=== PATIENT | female | born 1955 | race Caucasian/White ===

== ENCOUNTER → 2019-02-07 | Outpatient (CLI) | payer BC ==
[2019-02-07 08:56] LABS: CARBON DIOXIDE 27 MMOL/L (21-32); CHLORIDE 98 MMOL/L (98-107); POTASSIUM 4.7 MMOL/L (3.6-5.0); SODIUM 136 MMOL/L (135-145)
[2019-02-07 08:57] LABS: ALANINE AMINOTRANSFERASE 13 U/L (0-55); ALBUMIN 4.1 GM/DL (3.2-4.5); ALKALINE PHOSPHATASE 69 U/L (40-136); BILIRUBIN,TOTAL 0.3 MG/DL (0.1-1.0); BUN/CREATININE RATIO 28; CALCIUM 8.9 MG/DL (8.5-10.1); CREATININE SERUM 0.75 MG/DL (0.60-1.30); GFR ESTIMATED > 60; GLUCOSE 156 MG/DL (70-105); TOTAL PROTEIN 6.7 GM/DL (6.4-8.2)
[2019-02-07 11:15] LABS: CHOLESTEROL 166 MG/DL (< 200); HDL CHOLESTEROL 51 MG/DL (40-60); TRIGLYCERIDES 47 MG/DL (<150); VLDL CHOLESTEROL 9 MG/DL (5-40)
== END ==
LOC: LAB FS 08:07
PROVIDERS: ATTEND Pediatrics
DX: I10 Essential (primary) hypertension (principal); E11.00 Type 2 diabetes mellitus with hyperosmolarity without nonketotic hyperglycemic-hyperosmolar coma (NKHHC)
CPT/HCPCS: 36415; 80053; 80061; 83036

== ENCOUNTER → 2019-08-08 | Outpatient (CLI) | payer BC ==
[2019-08-08 09:28] LABS: BILIRUBIN,TOTAL 0.4 MG/DL (0.1-1.0); BUN/CREATININE RATIO 21; CALCIUM 9.8 MG/DL (8.5-10.1); CARBON DIOXIDE 28 MMOL/L (21-32); CHLORIDE 97 MMOL/L (98-107); CREATININE SERUM 0.67 MG/DL (0.60-1.30); GFR ESTIMATED > 60; GLUCOSE 184 MG/DL (70-105); POTASSIUM 4.4 MMOL/L (3.6-5.0); SODIUM 136 MMOL/L (135-145)
[2019-08-08 09:29] LABS: ALANINE AMINOTRANSFERASE 14 U/L (0-55); ALBUMIN 4.2 GM/DL (3.2-4.5); ALKALINE PHOSPHATASE 82 U/L (40-136); TOTAL PROTEIN 7.4 GM/DL (6.4-8.2)
== END ==
LOC: LAB FS 08:36
PROVIDERS: ATTEND Pediatrics
DX: E11.00 Type 2 diabetes mellitus with hyperosmolarity without nonketotic hyperglycemic-hyperosmolar coma (NKHHC) (principal)
CPT/HCPCS: 36415; 80053; 83036

== ENCOUNTER 2020-01-29 22:32 | Emergency (ER) | payer BC ==
[~2020-01-29] VITALS: Ht 157 cm; Wt 106.0 kg
--- OUTSIDE RECORDS SUMMARY | 2020-01-29 22:39 | XMS REPORT | Continuity of Care Document ---
Author Organization Unknown Address Unknown Phone Unavailable Allergies There is no data. Medications There is no data. 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 Results Test Result Range Comprehensive metabolic panel - 02/07/19 08:18 Serum or plasma sodium measurement (moles/volume) 136 mmol/L 135-145 Serum or plasma potassium measurement (moles/volume) 4.7 mmol/L 3.6-5.0 Serum or plasma chloride measurement (moles/volume) 98 mmol/L 98-107 Carbon dioxide 27 mmol/L 21-32 Serum or plasma anion gap determination (moles/volume) 11 mmol/L 5-14 Serum or plasma urea nitrogen measurement (mass/volume ) 21 mg/dL 7-18 Serum or plasma creatinine measurement (mass/volume) 0.75 mg/dL 0.60-1.30 Serum or plasma urea nitrogen/creatinine mass ratio 28 NRG Serum or plasma creatinine measurement w ith calculation of estimated glomerular filtration rate > NRG Serum or plasma glucose measurement (mass/volume) 156 mg/dL 70-105 Serum or plasma calcium measurement (mass/volume) 8.9 mg/dL 8.5-10.1 Serum or plasma total bilirubin measurement (mass/volu me) 0.3 mg/dL 0.1-1.0 Serum or plasma alkaline phosphatase ena surement (enzymatic activity/volume) 69 U/L 40-136 Serum or plasma aspartate aminotransfera se measurement (enzymatic activity/volume) 14 U/L 5-34 Serum or plasma alanine aminotransferase measurement (enzymatic activity/volume) 13 U/L 0-55 Serum or plasma protein measurement (mass/volume) 6.7 g/dL 6.4-8.2 Serum or plasma albumin measurement (mass/volume) 4.1 g/dL 3.2-4.5 CALCIUM CORRECTED 8.8 mg/dL 8.5-10.1 Lipid 1996 panel - 02/07/19 08:18 Serum or plasma triglyceride measurement (mass/volume) 47 mg/dL <150 Serum or plasma cholesterol measurement (mass/volume) 166 mg/dL < 200 Serum or plasma cholesterol in HDL measurement (mass/v olume) 51 mg/dL 40-60 Cholesterol in LDL [mass/volume] in serum or plasma by direct assay 110 mg/dL 1-129 Serum or plasma cholesterol in VLDL measurement (mass/ volume) 9 mg/dL 5-40 Hemoglobin A1c - 02/07/19 08:18 Blood hemoglobin A1C measurement (mass/volume) 6.6 % 4.0-5.6 MEAN BLOOD GLUCOSE 143 % <=126 Comprehensive metabolic panel - 08/08/19 08:55 Serum or plasma sodium measurement (moles/volume) 136 mmol/L 135-145 Serum or plasma potassium measurement (moles/volume) 4.4 mmol/L 3.6-5.0 Serum or plasma chloride measurement (moles/volume) 97 mmol/L 98-107 Carbon dioxide 28 mmol/L 21-32 Serum or plasma anion gap determination (moles/volume) 11 mmol/L 5-14 Serum or plasma urea nitrogen measurement (mass/volume ) 14 mg/dL 7-18 Serum or plasma creatinine measurement (mass/volume) 0.67 mg/dL 0.60-1.30 Serum or plasma urea nitrogen/creatinine mass ratio 21 NRG Serum or plasma creatinine measurement w ith calculation of estimated glomerular filtration rate > NRG Serum or plasma glucose measurement (mass/volume) 184 mg/dL 70-105 Serum or plasma calcium measurement (mass/volume) 9.8 mg/dL 8.5-10.1 Serum or plasma total bilirubin measurement (mass/volu me) 0.4 mg/dL 0.1-1.0 Serum or plasma alkaline phosphatase ena surement (enzymatic activity/volume) 82 U/L 40-136 Serum or plasma aspartate aminotransfera se measurement (enzymatic activity/volume) 14 U/L 5-34 Serum or plasma alanine aminotransferase measurement (enzymatic activity/volume) 14 U/L 0-55 Serum or plasma protein measurement (mass/volume) 7.4 g/dL 6.4-8.2 Serum or plasma albumin measurement (mass/volume) 4.2 g/dL 3.2-4.5 CALCIUM CORRECTED 9.6 mg/dL 8.5-10.1 Hemoglobin A1c measurement - 08/08/19 08 :55 Blood hemoglobin A1C measurement (mass/volume) 6.8 % 4.0-5.6 MEAN BLOOD GLUCOSE 148 % <=126 Encounters ACCT No. Visit Date/Time Discharge Status Pt. Type Provider Facility Loc./Unit Complaint [id number] 08/08/2019 08:36:00 019 23:59:59 CLS Outpatient DANDRE GRAF, D[facility]IS [facility] FS E11.00 [id number] 02/07/2019 08:07:00 019 23:59:59 CLS Outpatient DORIS AMOS MD [facility] FS I10 E11.00
--- NOTE | 2020-01-29 22:51 | ED Integumentary General ---
General Chief Complaint: Skin/Wound Problems Stated Complaint: RIGHT LEG BLEED History of Present Illness Date Seen by Provider: January 29, 2020 Time Seen by Provider: 22:48 Initial Comments Small dark spot on the inside of her ankle felt to be a tape picked at it turned out to be a varicose vein and bled substantially and to stop none but concerned that it may break open again she is on her feet all night at work. Timing/Duration: just prior to arrival Severity: mild Location: extremities Associated Symptoms: No fever, No numbness, No tingling Allergies and Home Medications Allergies Coded Allergies: cefaclor (Verified Allergy, Unknown, 01/29/20) Patient Home Medication List Home Medication List Reviewed: Yes Review of Systems Review of Systems Constitutional: no symptoms reported; No chills, No fever Musculoskeletal: No joint pain, No joint swelling, No muscle weakness Skin: lesions; No rash Past Djrivog-Vvovki-Jupfsm Hx Past Med/Social Hx: Reviewed Nursing Past Med/Soc Hx Patient Social History Recent Foreign Travel: No Contact w/Someone Who Travel: No Physical Exam Vital Signs Capillary Refill : General Appearance: WD/WN, no apparent distress Extremities: normal range of motion, non-tender, other (Court a few varicosities in the lower extremity 1 with an area that looks like it was recently excoriated not bleeding at this time) Neurologic/Psychiatric: no motor/sensory deficits, alert, normal mood/affect, oriented x 3 Skin: normal color, warm/dry Departure Impression Primary Impression: Varicose vein of leg Disposition: 01 HOME, SELF-CARE Condition: Stable Departure-Patient Inst. Referrals: DORIS AMOS MD (PCP/Family) Primary Care Physician Patient Instructions: Varicose Veins (DC) KATHY WILKINSON JR, MD January 29, 2020 22:51
[2020-01-29 22:55] VITALS: BP 173/98
== END 2020-01-29 22:57 | disposition home or self-care (01) ==
LOC: EDUNIT# 22:32 → ER FS 22:34
DX: I83.891 Varicose veins of right lower extremity with other complications (principal); Z88.1 Allergy status to other antibiotic agents
CPT/HCPCS: 99282

== ENCOUNTER 2023-07-10 20:59 | Emergency (ER) | payer BC, MEDICARE ==
[~2023-07-10] VITALS: Ht 152 cm; Wt 109.0 kg
--- NOTE | 2023-07-10 21:53 | ED Integumentary General ---
General Chief Complaint: Skin/Wound Problems Stated Complaint: VEIN IN LOWER LEG BLEEDING Nursing Triage Note: Patient to ER via wc with son c/o vein pulsating blood out back of lower leg. "This vein has come open in the past and usually applying pressure over some time will stop the bleed. This has been shooting out since 4:30 this susan and I can't get it to stop." Tourniquet in place on arrival. Source: patient History of Present Illness Date Seen by Provider: Jul 10, 2023 Time Seen by Provider: 21:15 Initial Comments 67-year-old female presenting with complaints of bleeding from varicose vein on the right lower leg. She states she has had this happen 3-4 times over the last several years. This event started around 430 this evening and she has not been able to get it to completely stop. With holding pressure it had slowed down e arlier but when they went to change the dressing it started bleeding again. She does not know what initially started the bleeding but just felt like she was getting wetness in her shoe at 430 while they were in the vehicle. She does not take a blood thinner other than a baby aspirin. She denies having any pain in the area. She has not seen a surgeon about the varicose veins previously. Timing/Duration: this afternoon Severity: moderate Location: extremities (Right medial ankle) Possible Cause: no cause identified Associated Symptoms: No blisters, No change in skin texture, No fever, No flushing, No headache, No hives, No jaundice, No malaise, No nasal congestion, No numbness, No pallor, No paresthesia, No petechiae, No rash, No sore throat, No swelling/mass/lumps, No tingling Allergies and Home Medications Allergies Coded Allergies: cefaclor (Verified Allergy, Unknown, 01/29/20) Patient Home Medication List Home Medication List Reviewed: Yes Review of Systems Review of Systems Constitutional: No chills, No dizziness, No fever EENTM: no symptoms reported Respiratory: no symptoms reported Cardiovascular: no symptoms reported Gastrointestinal: no symptoms reported Genitourinary: no symptoms reported Musculoskeletal: no symptoms reported Skin: see HPI Psychiatric/Neurological: No Symptoms Reported Past Sldswjd-Exdoqb-Pzpber Hx Patient Social History Tobacco Use?: No Substance use?: No Alcohol Use?: No Past Medical History Surgeries: No Respiratory: No Cardiac: No Neurological: No Genitourinary: No Gastrointestinal: No Musculoskeletal: No Endocrine: Yes Diabetes, Non-Insulin dep HEENT: No Cancer: No Psychosocial: No Integumentary: No Blood Disorders: No Physical Exam Vital Signs Vital Signs - First Documented 07/10/23 21:15 Temp 36.8 Pulse 75 Resp 18 B/P (MAP) 158/69 (98) Pulse Ox 100 O2 Delivery Room Air Capillary Refill : Less Than 3 Seconds General Appearance: no apparent distress, obese Cardiovascular: normal peripheral pulses Extremities: normal range of motion, non-tender, normal capillary refill, other (Bleeding from a varicose vein on the medial aspect of the right ankle. With pressure bleeding is controlled but when pressure is released the area starts bleeding again.) Neurologic/Psychiatric: alert, oriented x 3 Skin: normal color, warm/dry Procedures/Interventions Wound Location: Lower Extremities (Right medial ankle) Wound Length (cm): 0.2 Wound's Depth, Shape: superficial Wound Explored: clean Progress After obtaining verbal consent from the patient the wound was treated with a silver nitrate stick to try and cauterize the area of bleeding. Despite using silver nitrate and holding pressure the wound continued to bleed. Mixing Surgif lo for thrombin preparation and applying that along with a saline soaked wet gauze did get the bleeding to be controlled in the area to clot. A new dressing with Xeroform as the initial layer and then Telfa nonstick dressing applied at using an Luke bandage for support and pressure. Patient counseled on follow-up and return precautions. Advised she could try applying ice and holding pressure if it started to bleed again. If bleeding continued and cannot stay controlled then she would need to return or seek medical care as she may need repeat treatment and/or surgical intervention. Follow-up with her primary care prov ider at the least by phone on Thursday to advise of the recurrent bleeding and see about treatment plan. Progress/Results/Core Measures Results/Orders Vital Signs/I&O 07/10/23 07/10/23 21:15 22:20 Temp 36.8 Pulse 75 69 Resp 18 16 B/P (MAP) 158/69 (98) 116/56 Pulse Ox 100 96 O2 Delivery Room Air Room Air Blood Pressure Mean: 98 Departure Impression Primary Impression: Bleeding from varicose veins of right lower extremity Disposition: 01 HOME, SELF-CARE Condition: Stable Departure-Patient Inst. Decision time for Depature: 22:14 Referrals: DORIS AMOS MD (PCP/Family) Primary Care Physician Patient Instructions: Vein ablation, Varicose Veins (DC), Treatment of Varicose Veins of the Leg Add. Discharge Instructions: Keep wound covered with pressure dressing for at least the next 24 hours. Then change the dressing and reapply a new dressing with pressure. If it bleeds through the dressing then you need to change it sooner. May try elevating the leg and applying ice to help it stop bleeding. If it is bleeding again return or seek medical treatment to get the area to clot off again and Thursday call your doctor to follow up as you may need to have a procedure to make the varicose vein be scarred in or sealed off so this does not keep happening. All discharge instructions reviewed with patient and/or family. Voiced understanding. MARILYN FREEMAN MD Jul 10, 2023 21:53
[2023-07-10 22:20] VITALS: BP 116/56
== END 2023-07-10 22:20 | disposition home or self-care (01) ==
LOC: EDUNIT# 20:59 → ER FS 21:00
DX: I83.891 Varicose veins of right lower extremity with other complications (principal)
CPT/HCPCS: 12001